=== PATIENT | female | born 1945 | race Caucasian/White ===

== ENCOUNTER 2016-09-14 00:15 | Day surgery (SDC) | payer MEDICARE ==
[~2016-09-14] VITALS: Ht 154.9 cm; Wt 90.9 kg
[2016-09-14] VITALS (15 sets, daily range): BP systolic 94–139; BP diastolic 52–83; PULSE 57–79; RESP 14–18; O2SAT 94–97
[~2016-09-14 00:15] MED LIST: ACET325T51 PO; ALBU8.5H2 INHALATION; APIX5TAB PO; CALC-963 PO; CREST10T PO; CYAN500 PO; HYDR-3797 PO; HYDR-4003 PO; IBUP200C PO; LOSA25TA21 PO; METO50TA3 PO; OMEP20CA11 PO; RANI150C4 PO; SLO64 PO; UBID100C16 PO
[2016-09-14 10:12] LABS: BASOPHILS % (AUTO) 0.4 % (0-3); EOSINOPHILS % (AUTO) 5.6 % (0-5); MONOCYTES % (AUTO) 10.2 % (4-12); Mean Corpuscular Hemoglobin 29.8 pg (27.0-35.0); Mean Corpuscular Volume 92.6 fL (81-100); NEUTROPHILS % (AUTO) 50.2 % (40-74); Platelet Count 387 bil/L (150-400)
[2016-09-14 10:27] LABS: INR 0.9 ratio
[2016-09-14] MEDS ORDERED: Vancomycin Inj 1,500 MG in 0.9% Sodium Chloride 500 ML IV SCH (10:42)
[2016-09-14] MEDS: 0.9% Sodium Chloride 1,000 ML IV SCH ×3 (10:45→20:43)
[2016-09-14] MEDS ORDERED: 0.9% Sodium Chloride 250 ML ONE (11:56)
[2016-09-14] MEDS ORDERED: Heparin 5,000 Units/500 mL NS Premix IV ONE (11:56)
[2016-09-14] MEDS ORDERED: Bupivacaine-MPF 0.5% 30 mL Inj ONE (11:56)
[2016-09-14] MEDS ORDERED: Vancomycin 1,000 mg Inj ONE (12:02)
[2016-09-14] MEDS ORDERED: Water for Injection 50 ML IV ONE (12:02)
[2016-09-14] MEDS ORDERED: fentaNYL-PF 50 mCg/mL 2 mL Inj ONE ×3 (12:34→13:19)
[2016-09-14] MEDS ORDERED: Ondansetron 2 mg/mL 2 mL Inj IVPUSH PRN (14:05)
--- NOTE | 2016-09-14 15:49 | DRSVH ---
PROCEDURE: X-RAY CHEST ONE VIEW, PORTABLE ([id number]) INDICATIONS: For new leads placed TECHNIQUE: One view of the chest was acquired. COMPARISON: [facility], CR, XR CHEST 2VW, 04/27/2016, 10:23. [facility], CR , CHEST 1VW (PORTABLE), 05/21/2014, 15:44. FINDINGS: Surgical changes and devices: A cardiac pacemaker is present with leads in expected position. There i s a right shoulder prosthesis.. Lungs and pleura: No pleural effusions or pneumothorax. Lungs are clear. Mediastinum: Mediastinal contours appear normal. Heart size is normal. Bones and chest wall: No suspicious bony lesions. Overlying soft tissues appear unremarkable. IMPRESSION: Cardiac pacemaker leads in expected position. Dictated by: Radha Haney M.D. on 09/14/2016 at 15:45 Approved by: Radha Haney M.D. on 09/14/2016 at 15:47
--- NOTE | 2016-09-14 16:00 | OP ---
[address] [address] OPERATIVE REPORT PATIENT: THEO MORALES : 1945 MR#: [id number] ADMIT: 09/14/2016 JOB ID: [id number] DATE OF SURGERY: 09/14/2016 PREOPERATIVE DIAGNOSIS(ES): Sick sinus syndrome. POSTOPERATIVE DIAGNOSIS(ES): Sick sinus syndrome. PROCEDURES PERFORMED: 1. Dual-chamber pacemaker implantation. 2. Fluoroscopy. SURGEON: Jasson Guzman MD, electrophysiology attending. POLITICAL SCIENCE PROFESSOR: Laurel Kerr. IMPLANTED DEVICES: 1. [employer] pulse generator model AH7677, serial #[id number]. 2. RV lead [employer] LPA 1200M, 46 cm, serial #[id number]. 3. RV lead [employer] [id number], 52 cm, serial #[id number]. ANESTHESIA: Bolus dosing of Versed and fentanyl were utilized for an appropriate level of sedation. INDICATION: The patient is a pleasant 70-year-old woman with a structurally normal heart, previous atrial flutter ablation and sick sinus syndrome. After a discussion of the risks and benefits of pacemaker implantation, she opted to proceed. PROCEDURAL DESCRIPTION: Following informed signed consent, the patient was taken to the EP laboratory in a fasting, nonsedated state where she was prepped and draped in the usual sterile fashion. The left infraclavicular region was infiltrated with 40 cc of a 50/50 mixture of bupivacaine and lidocaine. Once adequate anesthesia had been achieved, a 3 cm transverse incision was performed 2 cm below the left clavicle. Dissection was carried down to the pectoralis fascia. A pocket was then fashioned using combination of electrocautery and blunt dissection. Once adequate hemostasis had been achieved, access to the left axillary vein was gotten with a micropuncture needle twice to deploy two 0.035, 3-mm J guidewires. Over the first of these, an 8-[place] tear-away sheath was advanced. Once the guidewire was removed, active fixation lead was advanced to the RV outflow tract and ultimately the RV apex. The lead was affixed in position using its associated active fixation screw. It was connected to the external analyzer and demonstrated appropriately sensed R waves, impedance, capture threshold. The lead was checked to 10 V, and there was no evidence of diaphragmatic stimulation. Attention was now paid to placement of the right atrial lead. Over the last of the previously deployed J guidewires, another 8-[place] tear-away sheath was advanced. Once the guidewire was removed, active fixation lead was advanced to the right atrial appendage. It was affixed in position using its associated active fixation screw. It was connected to the external analyzer and demonstrated appropriately sensed P waves, impedance, capture threshold. The lead was checked to 10 V, and there was no evidence of diaphragmatic stimulation. Once the position and redundancy of the leads had been confirmed in multiple fluoroscopic views, the leads were anchored to the prepectoralis fascia using associated anchoring sleeves and 2-0 Ethibond sutures. The pocket was then copiously irrigated with antibiotic solution. The leads were connected to a generator. The generator was placed in the pocket. It was affixed to the floor of the pocket using 1-0 Ti-Cron suture. The incision was then closed with running layers of absorbable suture. The wound was dressed with skin adhesive and a small dressing at the end of the procedure. The needle, sponge and instrument counts were all correct. COMPLICATIONS: None. ESTIMATED BLOOD LOSS: Negligible. DEVICE MEASURED DATA: 1. Right atrial lead, 3.0 mV, 530 ohms, 0.75 V at 0.4 msec. 2. RV lead, greater than 12 mV, 700 ohms, 0.5 V at 0.4 msec. FINAL PROGRAM PARAMETERS: DDD 60-130 beats per minute. IMPRESSION: Successful dual-chamber pacemaker implantation. PLAN: 1. Stat portable chest x-ray. 2. PA and lateral chest x-ray in morning. 3. Device interrogation in the morning. 4. IV vancomycin through tomorrow. 5. Doxycycline x7 days starting tomorrow. 6. Wound check in one week. ATTENDING STATEMENT: Jasson Guzman MD, electrophysiology attending, was present for and supervised/performed all aspects of this procedure.
--- NOTE | 2016-09-14 17:10 | NUR ---
Admission Pt arrived via bed with family. Ambulated to restroom, tolerated well. Denies any chest pain or SOB. Oriented to room and floor. Denies any needs, call light within reach, bed in lowest position.
[2016-09-14] MEDS: HYDROcodone-APAP 5-325 mg Tablet PO PRN ×2 (18:16→22:59)
[2016-09-14] MEDS ORDERED: Albuterol 2.5 mg/3 mL Inhalation Solution NEB PRN (18:35)
[2016-09-14] MEDS ORDERED: hydrOXYzine Pamoate 25 mg Capsule PO PRN (18:35)
[2016-09-14] MEDS: Pantoprazole 40 mg ER24 Tablet PO SCH (20:43)
[2016-09-14] MEDS: MeTOProlol XL 50 mg ER24 Tablet PO SCH (20:44)
[2016-09-15 00:41] VITALS: PULSE 61
[2016-09-15] MEDS: 0.9% Sodium Chloride 1,000 ML IV SCH ×3 (02:03→10:04)
[2016-09-15] MEDS ORDERED: Vancomycin Inj 1,500 MG in 0.9% Sodium Chloride 500 ML IV ONE (02:05)
[2016-09-15] MEDS: HYDROcodone-APAP 5-325 mg Tablet PO PRN ×2 (05:12→09:36)
[2016-09-15 05:24] VITALS: BP 109/72; PULSE 60; RESP 20; O2SAT 97
[2016-09-15] MEDS: Pantoprazole 40 mg ER24 Tablet PO SCH (07:56)
[2016-09-15] MEDS: MeTOProlol XL 50 mg ER24 Tablet PO SCH (07:57)
[2016-09-15] MEDS ORDERED: Magnesium Chloride SR 64 mg ER24 Tablet PO SCH (08:30)
[2016-09-15 09:57] VITALS: BP 104/70; PULSE 67; RESP 18; O2SAT 98
--- NOTE | 2016-09-15 10:09 | DRSVH ---
PROCEDURE: X-RAY CHEST, TWO VIEWS ([id number]) INDICATIONS: For new lead placement TECHNIQUE: 2 views of the chest were acquired. COMPARISON: [facility], CR, XR CHEST 1VW (PORTABLE), 09/14/2016, 14:29. [facility], CR, XR CHEST 2VW, 04/27/2016, 10:23. FINDINGS: Surgical changes and devices: Pacemaking device and dual chamber leads normal. Prior right humeral a rthroplasty. .. Lungs and pleura: No pleural effusions or pneumothorax. Lungs are abnormal with mild stranding each lung base but no definite pneumonia found. Mediastinum: Mediastinal contours are normal. Heart size is normal. Bones and chest wall: No suspicious bony abnormalities. Soft tissues appear unremarkable. IMPRESSION: Mild bibasilar atelectasis or scarring, pacemaking device and leads in normal position, n o pneumothorax or after pacemaker lead change. Dictated by: Jas Franco M.D. on 09/15/2016 at 10:07 Approved by: Jas Franco M.D. on 09/15/2016 at 10:08
--- NOTE | 2016-09-15 10:48 | PCM.DIMED ---
Discharge Instructions Date of Service Sep 15, 2016 Dates of Hospitalization Discharge Diagnosis Discharge Diagnosis Sick Sinus Syndrome Marked Sinus Bradycardia Paroxysmal Atrial Fibrillation Conversion Pauses to 3.9 sec Diet Heart Healthy Activity Other (Keep incision dry one day. Do not extend left elbow high above shoulder for one month. Do not lift or push more than 10 lbs for one month.) Call your provider Fever or Chills, Bleeding, Excessive diarrhea Patient Instructions Follow-up in: 1 week Mid-level Provider (F9): Martinez Mcdaniels PA-C Follow-up with Mid-level in: 6 weeks Martinez Mcdaniels PA-C Sep 15, 2016 10:48
[2016-09-15] MEDS ORDERED: DOXY100C2 PO (10:53)
[2016-09-15] MEDS ORDERED: HYDR-4003 PO (10:53)
[2016-09-15] MEDS ORDERED: METO-272 PO (10:53)
[2016-09-15 10:59] VITALS: PULSE 60
--- NOTE | 2016-09-15 12:02 | NUR ---
Discharge reviewed d/c instructions with pt including care notes and new prescriptions, pt signed and given originals, copies to chart. IV d/c intact, tele removed. Pt reporting mild CP at incision site at d/c, VS stable. All belongings packed by pt and taken with her. Pt taken by RN to car downstairs to be taken home by daughter. Pt left w/o arm sling on but had in her possessions, teaching reinforced for post pacer care.
--- NOTE | 2016-09-15 13:11 | DIS ---
[address] [address] DISCHARGE SUMMARY PATIENT: DOLORES MORALES : 1945 MR#: [id number] ADMIT: 09/14/2016 JOB ID: [id number] DIS: 09/15/2016 REASON FOR ADMISSION: Pacemaker implant. CHIEF COMPLAINT: Episodic lightheadedness and palpitations. BRIEF HISTORY: The patient is a very pleasant 70-year-old woman with a prior history of atrial flutter and she had a flutter ablation in February of 2015. She has also had paroxysmal atrial fibrillation along with sinus bradycardia. Dolores has been symptomatic with episodic lightheadedness and palpitations and she wore an ECG recorder for five days which showed a minimum heart rate of 31 beats per minute and a maximum of 158 and she had paroxysmal atrial fibrillation with six conversion pauses greater than 3 seconds. The longest was 3.9 seconds and she was lightheaded. She was informed of these results and wished to quickly proceed with the pacemaker implant which is indicated for symptomatic bradycardia. COURSE IN HOSPITAL: The patient was admitted through the [facility] and taken to the laboratory engineer, where she received the dual-chamber pacing system without incident. She was taken back to the [facility] for recovery from sedation and then transferred up to the third floor [place] for overnight observation and telemetry monitoring. In the morning she was ambulatory without difficulty and having some left shoulder pain related to the procedure and the positioning during the procedure most likely. Hydrocodone was helpful in managing the pain. Otherwise, she did not have shortness of breath, lightheadedness or chest pain. Device evaluation showed excellent capture and sensing thresholds. Chest x-ray showed good lead positions and no pneumothorax. The site is closed and dry and there is no hematoma. DISPOSITION: The patient was discharged home in good condition with a follow up appointment at the [facility] Cardiology office in one week. She was asked not to extend her left elbow high above her shoulder for one month and not to lift, push or pull more than 10 pounds with the left arm for one month. She will follow her heart healthy diet and take medications as prescribed. DISCHARGE MEDICATIONS: 1. Doxycycline 100 mg once a day for one week. 2. Hydrocodone/acetaminophen 5/325 mg tablets 1 q.4 hours p.r.n. pain, quantity of 20 with no refills 3. Metoprolol succinate 50 mg b.i.d. 4. Acetaminophen 650 mg q.4 hours p.r.n. fever. 5. ProAir HFA inhaler, 2 puffs q.4 hours p.r.n. dyspnea. 6. Apixaban 5 mg b.i.d. 7. Vitamin B12 1000 mcg b.i.d. 8. Hydroxyzine 25 mg q.h.s. for restless legs. 9. Ibuprofen 200 mg 4x daily. 10. Losartan 25 mg daily. 11. Magnesium chloride 64 mg daily. 12. Omeprazole 40 mg b.i.d. 13. Ranitidine 150 mg q.h.s. 14. 10 mg daily. 15. Co Q10 100 mg daily. FINAL DIAGNOSES: 1. Sick sinus syndrome. 2. Symptomatic bradycardia. 3. Paroxysmal atrial fibrillation. 4. Conversion pauses up to 3.9 seconds.
--- NOTE | 2016-09-15 16:38 | NUR ---
Social Work - Discharge Data: SW unable to see pt prior to discharge. Pt discharged home via POV, no needs assessed. Assessment: SW unable to assess pt. Plan: Pt discharged home, no needs. LEONEL Flores
== END 2016-09-15 12:07 | disposition home or self-care (01) ==
LOC: SOUO 00:15 → MPC 16:44 → SOUO 09-15 12:07
PROVIDERS: ATTEND Internal Medicine Cardiovascular Disease
DX: I49.5 Sick sinus syndrome (principal); I48.0 Paroxysmal atrial fibrillation; I49.49 Other premature depolarization; Z79.01 Long term (current) use of anticoagulants; I10 Essential (primary) hypertension; Z86.73 Personal history of transient ischemic attack (TIA), and cerebral infarction without residual deficits; Z98.890 Other specified postprocedural states
CPT/HCPCS: 33208; 71010; 71020; 80048; 83735; 85025; 85610; 93005; 94799; 99152; 99153; C1769; C1785; C1892; C1898; J1644; J2250; J3010; J3370; J7030; J7040; J7050